=== PATIENT | male | born 1945 | race Caucasian/White ===

== ENCOUNTER → 2016-08-04 | Outpatient (CLI) | payer OTHER | LOC: PCVCCLINIC 14:00 | PROVIDERS: ATTEND Internal Medicine Cardiovascular Disease | DX: E78.00 Pure hypercholesterolemia, unspecified (principal); G47.33 Obstructive sleep apnea (adult) (pediatric); N18.9 Chronic kidney disease, unspecified; I65.29 Occlusion and stenosis of unspecified carotid artery | CPT/HCPCS: 80061; 93005; G0463 ==

== ENCOUNTER → 2017-04-13 | Outpatient (CLI) | payer OTHER | END | disposition home or self-care (01) | LOC: PCVCCLINIC 13:51 | PROVIDERS: ATTEND Internal Medicine Cardiovascular Disease | DX: I44.0 Atrioventricular block, first degree (principal); I12.9 Hypertensive chronic kidney disease with stage 1 through stage 4 chronic kidney disease, or unspecified chronic kidney disease; N18.9 Chronic kidney disease, unspecified; E04.1 Nontoxic single thyroid nodule; E78.00 Pure hypercholesterolemia, unspecified; G47.33 Obstructive sleep apnea (adult) (pediatric); G60.9 Hereditary and idiopathic neuropathy, unspecified; R00.1 Bradycardia, unspecified; I77.9 Disorder of arteries and arterioles, unspecified; Z79.82 Long term (current) use of aspirin; Z88.8 Allergy status to other drugs, medicaments and biological substances; Z79.899 Other long term (current) drug therapy | CPT/HCPCS: 80061; 93005; G0463 ==

== ENCOUNTER → 2017-06-11 | Outpatient (CLI) | payer OTHER ==
--- NOTE | 2017-06-11 10:41 | PCVCIMAG ---
APPROVED REPORT Indications Stenosis Dizziness and Vertigo Risk Factors Hypertension: Hyperlipidemia Doppler Spectral Velocity Analysis PSV / EDVPSV / EDV ECA (R) 175 / 10 cm/sECA (L) 124 / 14 cm/s dICA (R) 86 / 15 cm/sdICA (L) 85 / 22 cm/s Ramon (R) 86 / 18 cm/smICA (L) 82 / 14 cm/s pICA (R) 149 / 17 cm/spICA (L) 84 / 16 cm/s Bulb (R) 54 / 9 cm/sBulb (L) 94 / 14 cm/s dCCA (R) 116 / 18 cm/sdCCA (L) 116 / 18 cm/s mCCA (R) 91 / 14 cm/smCCA (L) 113 / 19 cm/s Vert (R) 68 / 8 cm/sVert (L) 48 / 8 cm/s ICA/CCA 1.28ICA/CCA 0.73 Basic Measurements Blood Pressure: Pulses: Right Left RightLeft Brachial(Sitting) 142/83qiYk702/66mmHgTemporal Real Time B-Mode Imaging Vert. (R)AntegradeVert. (L)Antegrade Findings The right carotid bulb has moderate heterogeneous plaque. The right proximal internal carotid artery shows 40-50% stenosis. The right common carotid artery shows no significant stenosis. The right external carotid artery shows >50% stenosis. The left carotid bulb has mild plaque. The left proximal internal carotid artery shows no significant stenosis. The left common carotid artery shows no significant stenosis. The left external carotid artery shows no significant stenosis. Conclusion 1. Right internal carotid artey stenosis (40-50%) 2. Left internal carotid artery plaquing 3. Antegrade vertebral flow
--- NOTE | 2017-06-11 10:47 | PCVCIMAG ---
EXAM: ULTRASOUND OF THE THYROID INDICATION: Thyroid nodules. FINDINGS: The right thyroid lobe measures 2.5 x 2.6 x 4.8. cm. The left thyroid lobe measures 1.2 x 2.6 x 4.1 cm. There is a 0.9 x 1.5 x 1.7 cm solid nodule in the mid right thyroid lobe laterally. No additional thyroid nodules are seen. IMPRESSION: 1.7 cm indeterminate solid nodule mid lateral right thyroid lobe. Further evaluation by ENT may be helpful. LOC:[id number]
== END | disposition home or self-care (01) ==
LOC: PCVCIMAG 08:19
PROVIDERS: ATTEND Internal Medicine Cardiovascular Disease
DX: I65.23 Occlusion and stenosis of bilateral carotid arteries (principal); E04.1 Nontoxic single thyroid nodule; R42 Dizziness and giddiness
CPT/HCPCS: 76536; 93306; 93880

== ENCOUNTER → 2017-06-22 | Outpatient (CLI) | payer OTHER ==
--- NOTE | 2017-06-22 20:59 | PCVCIMAG ---
EXAM: BILATERAL LOWER EXTREMITY ARTERIAL DUPLEX INDICATION: Peripheral Arterial Disease. Leg pain. FINDINGS: Right Leg: Satisfactory arterial waveform in the common femoral and profunda femoral arteries without significant stenosis. No flow-limiting stenosis in the superficial femoral artery or popliteal arteries seen. 70% stenosis proximal and distal portions of the anterior tibial artery. Mild stenosis mid posterior tibial artery. The peroneal artery is patent. Left Leg: Satisfactory arterial waveforms in the common femoral profunda femoral arteries. No significant stenosis in the superficial femoral artery or popliteal arteries. [id number] stenosis proximal anterior tibial artery not felt to be critically flow-limiting. The peroneal artery and posterior tibial arteries show adequate patency. IMPRESSION: No superficial femoral or popliteal artery stenoses seen in either lower extremity. 70% stenosis proximal and distal right anterior tibial artery. Mild/moderate stenosis proximal left anterior tibial artery. LOC:OFFICE
== END | disposition home or self-care (01) ==
LOC: PCVCIMAG 14:24
PROVIDERS: ATTEND Internal Medicine Cardiovascular Disease
DX: I73.9 Peripheral vascular disease, unspecified (principal); I70.8 Atherosclerosis of other arteries
CPT/HCPCS: 93925

== ENCOUNTER → 2017-11-16 | Outpatient (CLI) | payer OTHER | END | disposition home or self-care (01) | LOC: PCVCIMAG 07:57 | DX: I10 Essential (primary) hypertension (principal); I70.1 Atherosclerosis of renal artery | CPT/HCPCS: 76770; 93975 ==

== ENCOUNTER → 2017-12-22 | Outpatient (CLI) | payer OTHER | END | disposition home or self-care (01) | LOC: PCVCIMAG 14:01 | DX: E04.1 Nontoxic single thyroid nodule (principal); I10 Essential (primary) hypertension; E78.00 Pure hypercholesterolemia, unspecified; I70.1 Atherosclerosis of renal artery; I77.9 Disorder of arteries and arterioles, unspecified; I73.9 Peripheral vascular disease, unspecified; Z79.899 Other long term (current) drug therapy; Z79.82 Long term (current) use of aspirin; Z88.8 Allergy status to other drugs, medicaments and biological substances | CPT/HCPCS: 76536; 93005; G0463 ==

== ENCOUNTER → 2018-02-15 | Outpatient (CLI) | payer OTHER | END | disposition home or self-care (01) | LOC: PCVCCLINIC 14:10 | DX: I10 Essential (primary) hypertension (principal); R42 Dizziness and giddiness; R00.1 Bradycardia, unspecified; R25.1 Tremor, unspecified; G60.9 Hereditary and idiopathic neuropathy, unspecified; Z79.82 Long term (current) use of aspirin; Z79.899 Other long term (current) drug therapy | CPT/HCPCS: 93005; G0463 ==

== ENCOUNTER → 2018-07-04 | Outpatient (CLI) | payer OTHER | END | disposition home or self-care (01) | LOC: PCVCCLINIC 16:06 | PROVIDERS: ATTEND Internal Medicine Cardiovascular Disease | DX: I12.9 Hypertensive chronic kidney disease with stage 1 through stage 4 chronic kidney disease, or unspecified chronic kidney disease (principal); N18.9 Chronic kidney disease, unspecified; R06.02 Shortness of breath; R00.1 Bradycardia, unspecified; I65.29 Occlusion and stenosis of unspecified carotid artery; I87.2 Venous insufficiency (chronic) (peripheral); I73.9 Peripheral vascular disease, unspecified; E78.00 Pure hypercholesterolemia, unspecified; R94.31 Abnormal electrocardiogram [ECG] [EKG]; R07.9 Chest pain, unspecified; Z79.899 Other long term (current) drug therapy; Z88.8 Allergy status to other drugs, medicaments and biological substances | CPT/HCPCS: 93005; G0463 ==

== ENCOUNTER → 2018-07-08 | Outpatient (CLI) | payer OTHER ==
--- NOTE | 2018-07-08 14:27 | PCVCIMAG ---
EXAM: BILATERAL SUPERFICIAL VENOUS DUPLEX INDICATION: Leg pain and swelling. FINDINGS: Right leg: No thrombus in the common femoral, main femoral, or popliteal veins. These veins are compressible. Right Great Saphenous Vein: At the saphenofemoral junction the diameter is 8.7 mm, in the mid thigh it is 3.4 mm, and in the calf it is 3.0 mm. There is not significant venous insufficiency/reflux throughout. Venous insufficiency/reflux duration is 0 seconds. Right Small Saphenous Vein: At the saphenopopliteal junction the diameter is 4.5 mm, and in the calf it is 3.9 mm. There is not significant venous insufficiency/reflux throughout. Venous insufficiency/reflux duration is 0 seconds. There is a cranial extension present. Left leg: No thrombus in the common femoral, main femoral, or popliteal veins. These veins are compressible. Left Great Saphenous Vein: At the saphenofemoral junction the diameter is 7.0 mm, in the mid thigh it is 3.8 mm, and in the calf it is 3.4 mm. There is not significant venous insufficiency/reflux throughout. Venous insufficiency/reflux duration is 0 seconds. Left Small Saphenous Vein: At the saphenopopliteal junction the diameter is 2.7 mm, and in the calf it is 3.4 mm. There is not significant venous insufficiency/reflux throughout. Venous insufficiency/reflux duration is 0 seconds. There is not a cranial extension present. IMPRESSION: Right Great Saphenous Vein: No significant venous insufficiency/reflux is present as noted above. Right Small Saphenous Vein: No significant venous insufficiency/reflux is present as noted above. Left Great Saphenous Vein: No significant venous insufficiency/reflux is present as noted above. Left Small Saphenous Vein: No significant venous insufficiency/reflux is present as noted above. LOC:OFFICE
== END | disposition home or self-care (01) ==
LOC: PCVCIMAG 12:03
PROVIDERS: ATTEND Internal Medicine Cardiovascular Disease
DX: I87.2 Venous insufficiency (chronic) (peripheral) (principal); M79.89 Other specified soft tissue disorders; M79.661 Pain in right lower leg; M79.662 Pain in left lower leg
CPT/HCPCS: 93970

== ENCOUNTER → 2018-07-12 | Outpatient (CLI) | payer OTHER ==
[~2018-07-12] MED LIST: ASPIRIN 325 MG TABLET ONE; CLOPIDOGREL BISULFATE 75 MG TABLET ONE; DIAZEPAM 10 MG TABLET. ONE; HEPARIN for ARTERIAL LINE 1,500 ML ONE; HEPARIN for SUB-Q USE 5,000 UNIT/ML VIAL. SQ ONE; IOHEXOL 300 MG/ML 100ML VIAL. ONE; IOHEXOL 350 MG/ML 100 ML VIAL. ONE; IV NORMAL SALINE 1000ML BAG 1,000 ML ONE; LIDOCAINE 1%/EPI 1:100,000 20 ML VIAL. ONE; MIDAZOLAM HCL/PF 2 MG/2 ML VIAL. ONE; fentaNYL PF VIAL 100 MCG/2 ML VIAL ONE; hydrALAZINE 20 MG/ML VIAL. ONE
--- NOTE | 2018-07-12 11:49 | PCVCINTER ---
EXAM: 1. AORTOGRAM AND BILATERAL ILIOFEMORAL ANGIOGRAM 2. BILATERAL RENAL ANGIOGRAPHY 3. LEFT COMMON ILIAC ARTERY STENT PLACEMENT. INDICATION: Peripheral arterial disease. Coronary artery disease. Difficult to control hypertension. Leg pain. Hypertension. Renal atherosclerosis. No prior catheter based angiographic study is available. A full diagnostic angiogram study is performed today and the decision to intervene is based on this diagnostic study. PROCEDURE: Procedure and risks of angiography intervention is appropriate including limb loss stroke and were discussed with the patient's family and consent obtained. The patient's right groin was prepped in the normal sterile fashion. IV conscious sedation was used throughout procedure with appropriate monitoring from 10:00 AM through 11:00 AM. Ultrasound was used to interrogate the right groin and showed the right common femoral artery to be patent. A permanent spot film was obtained. Under ultrasound guidance access into the right common femoral artery was obtained and a 5 Ukrainian sheath was placed. Through this a 5 Ukrainian flush catheter was placed into the abdominal aorta at the level of the renal arteries and AP aortogram was performed. Catheter was positioned at the aortic bifurcation and bilateral iliofemoral angiogram obtained. Catheter was exchanged for a visceral catheter was placed into the right renal arteries and right renal angiograms obtained. Catheter was placed into the the left renal arteries and left renal angiograms were obtained. Patient was given 4000 units of heparin. A 6 Ukrainian crossover sheath was placed via the right groin to the level of the left common iliac artery. Stent placement across the areas of high-grade stenosis in the left common iliac artery was carried out with a 14 x 40 Smart control stent with subsequent dilatation to 9.0 mm. Follow-up angiogram was performed. Catheters and wires removed. Sheath was removed and hemostasis obtained using the FISH device. No immediate complications. FINDINGS: Aortogram: There are 2 right and one left renal artery. Moderate plaque infrarenal abdominal aorta without significant stenosis. Iliofemoral angiography: Mild plaque origin of the right common iliac artery does not cause flow-limiting stenosis. Right internal and external iliac artery is patent. Bulky eccentric plaque proximal left common iliac artery results in 80% stenosis. Left internal and external iliac arteries are patent. The right and left common femoral and profunda femoral arteries are patent as well as the visualized upper superficial femoral arteries bilaterally. Right renal artery: There are 2 right renal arteries with the upper artery being dominant. The upper renal artery bifurcates early and this may account for the elevated velocity seen on duplex. No flow-limiting right renal artery stenosis. Left renal artery: Minimal plaque proximal vessel does not cause significant stenosis. Left common iliac artery: Following procedure as above vessel shows satisfactory patency in good position of the stent. IMPRESSION: No hemodynamically significant renal artery stenosis as reviewed above. Eccentric 80% proximal left common iliac artery stenosis was treated as above with good patency restored. LOC:[id number]
--- NOTE | 2018-07-12 15:10 | PCVCIMAG ---
EXAM: DUPLEX ULTRASOUND OF THE RIGHT GROIN INDICATION: Groin swelling and pain. FINDINGS: No pseudoaneurysm is present. The common femoral artery and vein are patent. No arteriovenous fistula is seen. IMPRESSION: Study is negative for pseudoaneurysm. Incidental note is made of a 1.4 x 2.1 x 3.5 cm subcutaneous hematoma right groin. LOC:[id number]
--- NOTE | 2018-07-12 17:36 | PCVCINTER ---
APPROVED REPORT Study performed: 07/12/2018 11:00:34 Patient Details Patient Status: Room #: 2 The patient is a 73 year-old Male Event Personnel Erika Arshad RT(R)(), Faustino Kapoor RT(R), Pio العلي MD Risk Factors Arterial HypertensionDysplipidemia (Type: 1), Peripheral Vascular Disease, Hypercholesterolemia, Last Creatanine 1Tobacco History (Never) Previous Procedures/Diagnoses Previous Femoral Procedure Procedure Narrative The patient was brought electively to the Cardiac Catheterization Laboratory and was prepped and draped in a sterile manner. The right coronary system was accessed and visualized with a JR4 catheter. The left coronary system was accessed and visualized with a JL4 catheter. The left ventricle was accessed and visualized with a Pigtail catheter. Left ventriculogram was performed in [place] projection. Hemostasis was obtained with manual pressure following sheath removal without any complications. The patient tolerated the procedure well and there were no complications associated with the procedure. There was no hematoma. Hemodynamics The aortic pressure is 134/60 mmHg with a mean of mmHg. The left ventricular pressure is 149/5 mmHg with a mean of mmHg. Conclusion #1 normal left ventricular size and systolic function EF 60-65% #2 there is an ostial left main lesion with moderately heavy calcification. This is approaching 70-80% eccentric. Giving rise to LAD and circumflex #3 the LAD is proximal calcification moderate irregularities. There is a 50-60% mid vessel lesion this extends around the apex diffusely diseased diagonal system with mild disease #4 circumflex OM is nondominant. There is a high rising first OM branch that has an eccentric 60-70% lesion moderate distribution. Then a larger OM system which is mildly diseased #5 large dominant right coronary artery with mild irregularities giving rise to the PDA which extends along the inferior wall Recommendations and plan: Continue aggressive risk factor modification. We'll have CV surgical evaluation in the a.m. for consideration of revascularization by bypass surgery due to high-grade ostial left main disease. Patient is relatively asymptomatic. Increasing fatigue but no unstable anginal symptoms. To avoid heavy exertional activity. Call or emergency room with any recurrent symptoms or chest pain.
== END | disposition home or self-care (01) ==
LOC: PCVCINTER 09:41
PROVIDERS: ATTEND Internal Medicine Cardiovascular Disease
DX: I70.293 Other atherosclerosis of native arteries of extremities, bilateral legs (principal); I70.1 Atherosclerosis of renal artery; I25.10 Atherosclerotic heart disease of native coronary artery without angina pectoris; I70.0 Atherosclerosis of aorta; F41.9 Anxiety disorder, unspecified; I12.9 Hypertensive chronic kidney disease with stage 1 through stage 4 chronic kidney disease, or unspecified chronic kidney disease; N18.9 Chronic kidney disease, unspecified; E78.00 Pure hypercholesterolemia, unspecified; G47.33 Obstructive sleep apnea (adult) (pediatric); E78.1 Pure hyperglyceridemia; E04.1 Nontoxic single thyroid nodule; S80.11XA Contusion of right lower leg, initial encounter; X58.XXXA Exposure to other specified factors, initial encounter; Y93.89 Activity, other specified; Y92.89 Other specified places as the place of occurrence of the external cause; Y99.8 Other external cause status; G62.9 Polyneuropathy, unspecified; Z98.890 Other specified postprocedural states; Z72.89 Other problems related to lifestyle; Z88.8 Allergy status to other drugs, medicaments and biological substances; Z79.899 Other long term (current) drug therapy; Z98.49 Cataract extraction status, unspecified eye; Z96.1 Presence of intraocular lens
CPT/HCPCS: 36252; 37221; 75630; 76937; 93458; 93926; 99152; 99153; C1713; C1725; C1751; C1769; C1876; C1894; J0360; J0690; J1644; J2250; J3010; J3490; J7030; Q9967

== ENCOUNTER → 2018-07-21 | Outpatient (CLI) | payer OTHER ==
--- NOTE | 2018-07-21 14:50 | PCVCIMAG ---
EXAM: BILATERAL CAROTID DUPLEX INDICATION: Carotid Occlusive Disease. FINDINGS: Doppler Measurements (centimeters per second): RIGHT: Peak CCA-96, Peak ECA-161, Diastolic ICA-19, Peak ICA-139, ICA/CCA Ratio-1.4. LEFT: Peak CCA-110, Peak ECA-180, Diastolic ICA-12, Peak ICA-106, ICA/CCA Ratio-1.0. RIGHT CAROTID: The carotid bulb has moderate plaque. The proximal internal carotid artery shows 40-50% stenosis. The common carotid artery shows no significant stenosis. The external carotid artery shows 50% stenosis. LEFT CAROTID: The carotid bulb has moderate plaque. The proximal internal carotid artery shows <40% stenosis. The common carotid artery shows no significant stenosis. The external carotid artery shows 60% stenosis. Antegrade flow in both vertebral arteries. IMPRESSION: 40-50% stenosis of the right internal carotid artery with moderate plaque. <40% stenosis of the left internal carotid artery with moderate plaque. No change since May 2017 study. LOC:[id number]
--- NOTE | 2018-07-21 16:23 | PCVCIMAG ---
APPROVED REPORT Study performed: 07/21/2018 14:33:04 EXAM: Comprehensive 2D, Doppler, and color-flow Echocardiogram Patient Location: Echo lab Room #: 3Status: routine BSA: 2.12 HR: 43 bpmBP: 152/66 mmHg Rhythm: Bradycardia Other Information Study Quality: Fair Risk Factors: Cardiac Risk Factors: HTN Indications Pre-Op CAD Hypertension/HDD 2D Dimensions IVSd: 9.68 (7-11mm)LVOT Diam: 22.01 (18-24mm) LVDd: 49.22 mm PWd: 8.74 (7-11mm)Ascending Ao: 27.36 (22-36mm) LVDs: 33.76 (25-40mm) Left Atrium: 39.34 (27-40mm) Aortic Root: 26.58 mm LV Single Plane 4CH: 51.77 % LV Single Plane 2CH: 51.77 % Biplane EF: 52.2 % Volumes Left Atrial Volume (Systole) Single Plane 4CH: 72.04 mLSingle Plane 2CH: 60.92 mL Biplane LA Volume: 81.00 mLLA ESV Index: 38.00 mL/m2 Aortic Valve AoV Peak Rod.: 1.69 m/s AO Peak Gr.: 11.44 mmHgLVOT Max P.08 mmHg LVOT Max V: 1.12 m/s CRUZ Vmax: 2.53 cm2 Mitral Valve E/A Ratio: 1.3 MV Decel. Time: 170.80 ms MV E Max Rod.: 1.01 m/s MV A Rod.: 0.77 m/s MV PHT: 49.53 ms IVRT: 78.43 ms TDI E/Lateral E': 9.18E/Medial E': 11.22 Medial E' Rod.: 0.09 m/s Lateral E' Rod.: 0.11 m/s Pulmonary Valve PV Peak Rod.: 1.17 m/sPV Peak Gr.: 5.49 mmHg Pulmonary Vein P Vein S: 0.70 m/sP Vein A: 0.28 m/s P Vein D: 0.70 m/sP Vein A Dur.: 161.5 msec P Vein S/D Ratio: 1.00 Tricuspid Valve TR Peak Rod.: 2.34 m/s TR Peak Gr.: 21.87 mmHg TV Vmax: 0.64 m/sPA Pressure: 29.00 mmHg Left Ventricle The left ventricle is normal size. There is normal LV segmental wall motion. There is normal left ventricular wall thickness. Left ventricular systolic function is normal. The left ventricular ejection fraction is within the normal range. LVEF is 50-55%. The left ventricular diastolic function is normal. Right Ventricle The right ventricle is normal size. The right ventricular systolic function is normal. Atria Left atrium is mildly dilated. The right atrium size is normal. Aortic Valve Aortic valve is trileaflet. Aortic valve leaflets are mildly sclerotic but open well. No aortic regurgitation is present. There is no aortic valvular stenosis. Mitral Valve The mitral valve is normal in structure. Trace to mild mitral regurgitation. No evidence of mitral valve stenosis. Tricuspid Valve The tricuspid valve is normal in structure. Trace to mild tricuspid regurgitation with a PA pressure of 29 mmHg. No apparent pulmonary hypertension. Pulmonic Valve The pulmonary valve is normal in structure. There is no pulmonic valvular regurgitation. Great Vessels The aortic root is normal in size. The ascending aorta is normal in size. IVC is normal in size and collapses >50% with inspiration. Pericardium There is no pericardial effusion. There is no pleural effusion. <Conclusion> The left ventricle is normal size. LVEF is 50-55%. The left ventricular diastolic function is normal. The right ventricle is normal size. Left atrium is mildly dilated. Aortic valve is trileaflet. Aortic valve leaflets are mildly sclerotic but open well. There is no aortic valvular stenosis. Trace to mild mitral regurgitation. Trace to mild tricuspid regurgitation with a PA pressure of 29 mmHg. No apparent pulmonary hypertension. The aortic root is normal in size. There is no pericardial effusion.
== END | disposition home or self-care (01) ==
LOC: PCVCIMAG 13:37
PROVIDERS: ATTEND Internal Medicine Cardiovascular Disease
DX: Z01.810 Encounter for preprocedural cardiovascular examination (principal); I65.23 Occlusion and stenosis of bilateral carotid arteries; I25.10 Atherosclerotic heart disease of native coronary artery without angina pectoris; I10 Essential (primary) hypertension; I77.9 Disorder of arteries and arterioles, unspecified
CPT/HCPCS: 93306; 93880

== ENCOUNTER → 2018-11-03 | Outpatient (CLI) | payer OTHER | END | disposition home or self-care (01) | LOC: PCVCCLINIC 13:00 | PROVIDERS: ATTEND Internal Medicine Cardiovascular Disease | DX: I25.10 Atherosclerotic heart disease of native coronary artery without angina pectoris (principal); I77.9 Disorder of arteries and arterioles, unspecified; I73.9 Peripheral vascular disease, unspecified; E78.00 Pure hypercholesterolemia, unspecified; I70.1 Atherosclerosis of renal artery; I12.9 Hypertensive chronic kidney disease with stage 1 through stage 4 chronic kidney disease, or unspecified chronic kidney disease; N18.9 Chronic kidney disease, unspecified; Z88.8 Allergy status to other drugs, medicaments and biological substances; Z79.899 Other long term (current) drug therapy | CPT/HCPCS: 93005; G0463 ==

== ENCOUNTER → 2018-11-11 | Outpatient (CLI) | payer OTHER ==
--- NOTE | 2018-11-11 14:46 | PCVCIMAG ---
EXAM: AORTOILIAC DUPLEX INDICATION: Peripheral arterial disease FINDINGS: AORTA: Suprarenal aorta measures maximum diameter of 2.8 cm. There is not a fusiform infrarenal aortic aneurysm. The infrarenal aorta measures maximum diameter of 2.4 cm. No aortic stenosis. RIGHT COMMON ILIAC ARTERY: Maximum diameter is 1.0 cm. No significant stenosis. RIGHT EXTERNAL ILIAC ARTERY: No significant stenosis. LEFT COMMON ILIAC ARTERY: Maximum diameter is 1.2 cm. No significant stenosis. LEFT EXTERNAL ILIAC ARTERY: No significant stenosis. IMPRESSION: No abdominal aortic aneurysm. No aortoiliac stenosis seen. Previous left common iliac artery stent maintaining satisfactory patency. LOC:[id number]
--- NOTE | 2018-11-11 14:49 | PCVCIMAG ---
EXAM: NONINVASIVE ARTERIAL EXAMINATION OF BOTH LOWER EXTREMITIES INCLUDING PRE AND POST EXERCISE PRESSURE MEASUREMENTS AND DOPPLER WAVEFORMS INDICATION: Peripheral Arterial Disease. Leg pain. FINDINGS: Right Brachial: 158 mm Hg. Right Dorsalis Pedis: 158 mm Hg. Right Posterior Tibial: 161 mm Hg. Right CLINT = 1.02. Left Brachial: 158 mm Hg. Left Dorsalis Pedis: 160 mm Hg. Left Posterior Tibial: 174 mm Hg. Left CLINT = 1.10. Post Exercise: Left Brachial 152 mm Hg. Right Posterior Tibial: 205 mm Hg. Left Posterior Tibial: 167 mm Hg. Right CLINT = 1.35. Left CLINT = 1.10. IMPRESSION: No resting ischemia in the right lower extremity. No exercise induced ischemia in the right lower extremity. No resting ischemia in the left lower extremity. No exercise induced ischemia in the left lower extremity. LOC:[id number]
== END | disposition home or self-care (01) ==
LOC: PCVCIMAG 08:14
PROVIDERS: ATTEND Nuclear Medicine Nuclear Cardiology
DX: I73.9 Peripheral vascular disease, unspecified (principal); E78.00 Pure hypercholesterolemia, unspecified
CPT/HCPCS: 93924; 93978

== ENCOUNTER → 2018-11-15 | Outpatient (CLI) | payer OTHER | END | disposition home or self-care (01) | LOC: PCVCCLINIC 12:20 | PROVIDERS: ATTEND Nuclear Medicine Nuclear Cardiology | DX: I73.9 Peripheral vascular disease, unspecified (principal); I77.9 Disorder of arteries and arterioles, unspecified; I25.10 Atherosclerotic heart disease of native coronary artery without angina pectoris; I10 Essential (primary) hypertension; E78.00 Pure hypercholesterolemia, unspecified; Z88.8 Allergy status to other drugs, medicaments and biological substances | CPT/HCPCS: G0463 ==

== ENCOUNTER → 2019-05-25 | Outpatient (CLI) | payer OTHER | END | disposition home or self-care (01) | LOC: PCVCCLINIC 15:00 | PROVIDERS: ATTEND Internal Medicine Cardiovascular Disease | DX: I25.10 Atherosclerotic heart disease of native coronary artery without angina pectoris (principal); G47.33 Obstructive sleep apnea (adult) (pediatric); E78.00 Pure hypercholesterolemia, unspecified; R42 Dizziness and giddiness; I73.9 Peripheral vascular disease, unspecified; I65.23 Occlusion and stenosis of bilateral carotid arteries; I12.9 Hypertensive chronic kidney disease with stage 1 through stage 4 chronic kidney disease, or unspecified chronic kidney disease; N18.9 Chronic kidney disease, unspecified; Z79.899 Other long term (current) drug therapy | CPT/HCPCS: 36415; 80061; 93005; G0463 ==

== ENCOUNTER → 2019-06-21 | Outpatient (CLI) | payer OTHER ==
--- NOTE | 2019-06-21 13:33 | PCVCIMAG ---
APPROVED REPORT Study performed: 06/21/2019 11:44:50 Exam: Stress Echocardiogram Indication: CAD s/p CABG Patient Location: Echo lab Stress Nurse: Mary Luis RN Room #: 1 Status: routine Ht: 5 ft 9 in HR: 46 bpm BP: 124/64 mmHg Rhythm: Bradycardia,RBBB Medical History Medical History: CAD s/p CABG, HTN,SIMEON,PAD Cardiac Risk Factors: Hyperlipidemia, HTN Previous Cardiac Procedures: CABG Pretest Chest Pain Characteristics: No chest pain Exercise History: Sedentary Procedure The patient underwent an Exercise Stress Test using the Ojsh Protocol. Blood pressure, heart rate, and EKG were monitored. An Echocardiogram was performed by mail technician in four stages in quad fashion. At peak stress, four selected images were obtained and placed side by side with resting images for comparison. Stress Test Details Stress Test: Exercise stress testing was performed using a Josh protocol. HR Resting HR: 46 bpmMax Heart Rate (APMHR): 144 bpm Max HR Achieved: 115 bpmTarget HR (85% APMHR): 122 bpm % of APMHR: 79 Recovery HR: 76 bpm HR response to stress: Normal HR response to stress BP Resting BP: 124/64 mmHg Max BP: 150/52 mmHg Recovery BP: 130/60 mmHg BP response to stress: Normal blood pressure response to stress. ECG Resting ECG: Sinus Rhythm, RBBB Stress ECG: RBBB ST Change: Horizontal ST depression Maximum ST Deviation: 0.50 mm Arrhythmia: Occ PVCs, PACs Recovery ECG: Sinus Rhythm Recovery ST Change: Non-ischemic Recovery ST Deviation: -1.30 mm Recovery Arrhythmia: VPC Clinical Reason for Termination: Maximal effort Exercise duration: 6 min 00 sec Highest Stage Achieved: Stage 2: 2.5 mph at 12% grade. Exercise capacity: 7.0 METs Overall Exercise Capacity for Age: Poor Scale: Sedentary Angina Score: None No complications. Stress ECG Conclusion Alvarez Treadmill Score is 3.5 which is Moderate risk. Pre-Stress Echo The resting Echocardiogram showed normal left ventricular contractility with an estimated Ejection Fraction of about 50-55%. The resting Echocardiogram demonstrated wall motion abnormality in the septum consistent with CABG . Post-Stress Echo The stress Echocardiogram showed normal left ventricular contractility with an estimated Ejection Fraction of about 55-60%. The stress Echocardiogram demonstrated wall motion abnormality in the septum consistent with CABG . Compared to rest, there were no stress-induced wall motion abnormalities. Conclusion Clinical Response: Non-ischemic Exercise Capacity: Below Average Stress ECG Response: Non-ischemic Stress Echo Images: Non-ischemic No clinical, EKG or echocardiographic evidence for ischemia. No echocardiographic evidence for exercise induced ischemia. Normal stress echocardiogram with submaximal exercise stress. <Conclusion> No clinical, EKG or echocardiographic evidence for ischemia. No echocardiographic evidence for exercise induced ischemia. Normal stress echocardiogram with submaximal exercise stress.
== END | disposition home or self-care (01) ==
LOC: PCVCIMAG 11:42
PROVIDERS: ATTEND Internal Medicine Cardiovascular Disease
DX: I25.10 Atherosclerotic heart disease of native coronary artery without angina pectoris (principal); Z95.1 Presence of aortocoronary bypass graft
CPT/HCPCS: 93325; 93351